=== PATIENT | female | born 1945 | race Caucasian/White ===

== ENCOUNTER 2017-03-01 16:17 | Emergency (ER) | payer OTHER ==
[~2017-03-01] VITALS: Ht 152.4 cm; Wt 72.5 kg
[~2017-03-01 16:17] MED LIST: ASPI325T PO; ENOX40P SQ; GLUCTAB PO; LISI-360 PO; LORTA5 PO; PROT40TA PO; Z.0.COMMODE-3:1; Z.0.CPM; Z.0.WALKERFRONT
[2017-03-01 16:20] VITALS: BP 185/90; PULSE 86; RESP 20; TEMP 98.4; O2SAT 96
--- NOTE | 2017-03-01 16:29 | PD ---
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
--- NOTE | 2017-03-01 17:00 | RADRPT ---
EXAM DATE/TIME: 03/01/2017 16:45 [facility] COMPARISON: No previous studies available for comparison. INDICATIONS : Patient states she was walking up stairs today and felt a pop in left knee and left knee gave out. Patient states they have pain in entire left knee when putting weight on it. MEDICAL HISTORY : None. SURGICAL HISTORY : None. ENCOUNTER: Initial ACUITY: 1 day PAIN SCORE: 6/10 LOCATION: Left Knee FINDINGS: Four view examination of the left knee demonstrates no evidence of fracture or dislocation. Bony min eralization is normal. The articular surfaces are intact. There is a small joint effusion. CONCLUSION: Small joint effusion otherwise negative. Cesar Wong MD FACR on March 01, 2017 at 16:56 Board Certified Radiologist. This report was verified electronically.
--- NOTE | 2017-03-01 17:18 | PD ---
HPI . Left knee pain earlier today Chief Complaint: Pain: Acute or Chronic Time Seen by Provider: 17:18 Travel History International Travel<30 days: No Contact w/Intl Traveler<30days: No Traveled to known affect area: No History of Present Illness HPI 71-year-old female with history of diabetes here with complaints of left knee pain that occurred acutely while at work. Patient says she was climbing up some stairs when all of a sudden she felt something pop and her left knee gave out on her. She tells me that she has some difficulty walking, but it is extremely painful. She says when she applies weight to her left knee it is making it difficult to walk. She denies any head injury or loss of consciousness. She denies any prior issues with her left knee. She is accompanied by a close friend, who she says can be present during the examination. PFSH Past Medical History Arthritis: Yes Asthma: Yes Anxiety: No Depression: No Cancer: No Cardiovascular Problems: Yes ("MILD" HEART ATTACK 2011) Diabetes: Yes Endocrine: Yes Genitourinary: Yes (MAY 2012 kIDNEY DISEASE ) Hepatitis: No Hiatal Hernia: Yes Immune Disorder: No Musculoskeletal: Yes (GENERALIZED ARTHRITIS) Neurologic: No Psychiatric: No Reproductive: No Respiratory: Yes (DIAGNOSED WTIH ASTHMA; PT DENIES ANY SYMPTOMS OF SAME ) Thyroid Disease: No Past Surgical History Abdominal Surgery: Yes (PAUL) AICD: No Body Medical Devices: NONE Cardiac Surgery: No Ear Surgery: No Endocrine Surgery: No Eye Surgery: No Genitourinary Surgery: No Gynecologic Surgery: Yes (TUBAL LIGATION ) Joint Replacement: Yes (LEFT HIP) Oral Surgery: No Pacemaker: No Thoracic Surgery: No Social History Tobacco Use: No Substance Use: No Allergies-Medications (Allergen,Severity, Reaction): Coded Allergies: No Known Allergies (Unverified , 10/06/14) Reported Meds & Prescriptions Reported Meds & Active Scripts Active Mobic (Meloxicam) 7.5 Mg Tab 7.5 Mg PO DAILY Walker Front Wheel (Z.0.walkerfront) Device 1 Unit Cpm Machine (Z.0.cpm) Device 1 Unit Commode-3:1 (Z.0.commode-3:1) Device 1 Unit Aspirin 325 mg (Aspirin) 325 Mg Tab 325 Mg PO DAILY Start Aspirin after Lovenox is completed. Reported Glucophage XR 24 HR (Metformin HCl) 500 Mg Tab 500 Mg PO HS Review of Systems General / Constitutional: No: Fever Eyes: No: Visual changes HENT: No: Headaches Cardiovascular: No: Chest Pain or Discomfort Respiratory: No: Shortness of Breath Gastrointestinal: No: Abdominal Pain Genitourinary: No: Dysuria Musculoskeletal: Positive: Pain (left knee pain) Skin: No Rash Neurologic: No: Weakness Psychiatric: No: Depression Endocrine: No: Polydipsia Hematologic/Lymphatic: No: Easy Bruising Physical Exam Narrative GENERAL: AAO x 3, no acute distress, Well-nourished, well-developed patient. SKIN: Warm and dry. No visible rashes or bruising. HEAD: Normocephalic and atraumatic. EYES: No scleral icterus. No injection or drainage. ENT: No nasal drainage noted. Airway patent. NECK: Supple, trachea midline. No JVD. CARDIOVASCULAR: Regular rate and rhythm without murmurs, gallops, or rubs. RESPIRATORY: Breath sounds equal bilaterally. No accessory muscle use. No rhonchi or rales. GASTROINTESTINAL: Visual inspection normal EXTREMITIES: No cyanosis or edema. Full range of motion of right knee. Left knee full range of motion passively, but elicits pain. There is tenderness with valgus and varus stress testing. Mild effusion present. BACK: Nontender without obvious deformity. No CVA tenderness. PSYCH: AAO x 3, normal affect. Data Data Last Documented VS Vital Signs Date Time Temp Pulse Resp B/P Pulse Ox O2 Delivery O2 Flow Rate FiO2 03/01/17 16:20 98.4 86 20 185/90 96 Room Air Orders Knee, Complete (4vws) (03/01/17 16:29) Ice/Cold Pack (03/01/17 16:29) ^ Jesus Bandage (03/01/17 17:26) Crutches (03/01/17 17:26) MDM Medical Decision Making Medical Screen Exam Complete: Yes Emergency Medical Condition: Yes Medical Record Reviewed: Yes Differential Diagnosis Osteoarthritis, internal derangement knee, meniscal injury, ACL injury, less likely fracture, less likely dislocation Narrative Course 71-year-old female with history of diabetes here with complaints of left knee pain that occurred acutely while at work. Patient says she was climbing up some stairs when all of a sudden she felt something pop and her left knee gave out on her. She tells me that she has some difficulty walking, but it is extremely painful. She says when she applies weight to her left knee it is making it difficult to walk. She denies any head injury or loss of consciousness. She denies any prior issues with her left knee. She is accompanied by a close friend, who she says can be present during the examination. Patient seen and examined. X-ray ordered and negative for any acute fracture. There is a small joint effusion present. Examination reveals that there is a possibility of meniscal injury or ligamentous injury. Ultimately she will need to see an orthopedist for further recommendations and evaluation. At this point I will provide her with some anti-inflammatories, Jesus wrap and crutches to offload. She will need to refrain from standing for prolonged time and walking or climbing at work. She will need follow-up with her primary care provider or orthopedist for further recommendations and at work restrictions. Patient verbalized understanding of instructions, questions were answered, and thanked me for their care. I advised them if their condition worsens, please return to the nearest emergency room for further care. Diagnosis Primary Impression: Left knee pain Qualified Code: M25.562 - Acute pain of left knee Referrals: Orthopedist Patient Instructions: General Instructions Additional Instructions: Please return to emergency department if your symptoms return or worsen. Follow up with your primary care provider. Take medications as prescribed. Please see orthopedist as we discussed. Rest the affected area as much as possible. Use the crutches for the next several days to help keep weight off of your knee. Ice this area for 15-20 minutes at a time. You can do this every hour or as much as tolerated. Keep this area compressed (jesus bandage) as tolerated. Elevate this area. Med/Other Pt SpecificInfo: Prescription(s) given Scripts Meloxicam (Mobic)7.5 Mg Tab7.5 Mg PO DAILY #10 TAB Ref 0 Prov:Lupis Macias MD 03/01/17 Disposition: 01 DISCHARGE HOME Condition: Stable Jeny Jones March 01, 2017 17:18 Prov:Lupis Macias MD 03/01/17 Disposition: 01 DISCHARGE HOME Condition: Stable Jeny Jones March 01, 2017 17:18
[2017-03-01] MEDS ORDERED: MOBI7.5T PO (17:25)
== END 2017-03-01 18:12 | disposition home or self-care (01) ==
LOC: NEPK 16:17
DX: M25.562 Pain in left knee (principal); J45.909 Unspecified asthma, uncomplicated; E11.9 Type 2 diabetes mellitus without complications; I25.2 Old myocardial infarction; X58.XXXA Exposure to other specified factors, initial encounter; Y93.01 Activity, walking, marching and hiking; Y99.0 Civilian activity done for income or pay
CPT/HCPCS: 73564; 99283; E0113